=== PATIENT | female | born 1985 ===

== ENCOUNTER 2017-11-20 23:35 | Emergency (ER) | payer OTHER, BC ==
[2017-11-20 23:35] VITALS: BMI 23.9
[2017-11-20 23:48] VITALS: RESP 16; TEMP 98.5
[2017-11-20 23:49] VITALS: O2SAT 98
[2017-11-21] MEDS ORDERED: Tdap Vaccine 0.5 ml Vial (10-64 yrs) IM ONE (00:17)
--- NOTE | 2017-11-21 00:20 | ED PDOC ---
HPI: Wound Care - HPI Time Seen by Provider: 11/20/17 23:57 Chief Complaint (Nursing): Abnormal Skin Integrity Chief Complaint (Provider): right hand laceration History Per: Patient History Of Present Illness: 32 y/o female presents for evaluation of laceration to right hand, sustained prior to arrival. 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 Denies numbness/weakness right upper extremity, limitation of movement. Patient requesting tetanus booster. Past Medical History Reviewed: Historical Data, Nursing Documentation, Vital Signs Vital Signs: Last Vital Signs Temp 98.5 F 11/20/17 23:46 Pulse 95 H 11/20/17 23:49 Resp 16 11/20/17 23:49 BP 123/84 11/20/17 23:49 Pulse Ox 98 11/20/17 23:49 - Medical History PMH: Anemia, Hypothyroidism (being worked up) Denies: Chronic Kidney Disease - Surgical History Surgical History: Endoscopy - Home Medications Home Medications: Ambulatory Orders Medication Instructions Recorded Pnv95/Iron Fum/Folic Acid 1 tab PO DAILY 08/29/16 [ Caplet] Amoxicillin/Clavulanate [Augmentin 1 tab PO BID 11/10/16 875 MG-125 MG Tab] - Allergies Allergies/Adverse Reactions: Allergies Allergy/AdvReac Type Severity Reaction Status Date / Time No Known Allergies Allergy Verified 08/29/16 11:56 Review of Systems ROS Statement: Except As Marked, All Systems Reviewed And Found Negative Musculoskeletal: Positive for: Hand Pain (right) Physical Exam - Reviewed Nursing Documentation Reviewed: Yes Vital Signs Reviewed: Yes - Physical Exam Appears: Positive for: Well, Non-toxic, No Acute Distress Pulses-Radial (L): 2+ Pulses-Radial (R): 2+ Extremity: Positive for: Normal ROM, Other (0.5cm superficial laceration dorsal right hand inbetween 1st and 2nd digit. No active bleeding. FROM. Distal NV/ motor intact) Neurologic/Psych: Positive for: Alert, Oriented - ECG O2 Sat by Pulse Oximetry: 98 Procedure: Wound Repair - Time Performed Time Performed: 00:30 - Time Out Time Out: Side verified, Site verified, Patient ID confirmed, Sterile procedures obs. - Consent Obtained Consent obtained: Verbal - Performed by Performed by: Mid-level Provider - Indications Indication(s):: Laceration - Location Location:: Right, Hand Shape:: Linear Dimensions Length cm: 0.5 Dimensions width cm: 0.2 Depth:: Epidermis - Debris Debris:: None - Irrigated Irrigated with ml of normal saline: 150mL - Wound repair method Shweta:: Tissue glue, Steri-strips - Muscle repiar layer closed with Muscle repair layer closed with:: Wound well approximated, Dressing applied, Tetanus ordered - Patient tolerated procedure Patient Tolerated Procedure:: Well Medical Decision Making Medical Decision Making: Patient educated on wound care, return precautions given. Disposition - Clinical Impression Clinical Impression: Hand laceration - Patient ED Disposition Is Patient to be Admitted: No Counseled Patient/Family Regarding: Diagnosis, Need For Followup - Disposition Disposition: Routine/Home Disposition Time: 00:49 Condition: STABLE Instructions: Laceration Repair With Glue (DC) Forms: [employer] (Lao)
[2017-11-21 01:18] VITALS: BP 114/65; PULSE 81
== END 2017-11-21 00:50 | disposition home or self-care (01) ==
LOC: H.ER 23:35
DX: S61.411A Laceration without foreign body of right hand, initial encounter (principal); W26.8XXA Contact with other sharp object(s), not elsewhere classified, initial encounter; Y92.234 Operating room of hospital as the place of occurrence of the external cause; E03.9 Hypothyroidism, unspecified